=== PATIENT | female | born 1985 | race Two or more races ===

== ENCOUNTER 2022-08-08 03:31 | Emergency (ER) | payer OTHER ==
[~2022-08-08] VITALS: Ht 165.1 cm; Wt 55.8 kg
[2022-08-08] MEDS ORDERED: NITROFURANTOIN100 M2 PO (13:14)
== END 2022-08-08 13:30 ==
LOC: ER 03:31
DX: N39.0 Urinary tract infection, site not specified (principal); B96.89 Other specified bacterial agents as the cause of diseases classified elsewhere